=== PATIENT | male | born 1995 | race Caucasian/White ===

== ENCOUNTER 2017-12-04 16:48 | Inpatient (IN) | payer OTHER ==
[2017-12-04 17:52] LABS: #Basophils 0.1 thou/uL (0.0-0.2); #Eosinphils 0.1 thou/uL (0.0-0.7); #Lymphocytes 2.1 thou/uL (1.20-3.40); #Monocytes 0.8 thou/uL (0.11-0.59); #Neutrophils 5.1 thou/uL (1.40-6.50); %Basophils 0.7 % (0.0-1.0); %Eosinophils 1.2 % (0.0-10.0); %Lymphocytes 25.4 % (28.0-48.0); %Monocytes 10.3 % (0.0-4.0); %Neutrophils 62.4 % (31.0-61.0); Hemoglobin 14.1 g/dL (14.0-18.0); Mean Corpuscular HGB CONC 34.2 g/dL (32.0-36.0); Mean Corpuscular Hemoglobin 29.5 pg (25.0-35.0); Mean Corpuscular Volume 86.1 fL (78.0-98.0); Mean Platelet Volume 7.4 fL (7.4-10.4); Platelet Count 238 thou/uL (130-400); RBC Distribution Width 12.6 % (11.5-14.5); White Blood Cell (WBC) Count 8.2 thou/uL (4.8-10.8)
--- NOTE | 2017-12-04 18:00 | RAD ---
CHEST ONE VIEW: 12/04/17 HISTORY: Altered mental status. COMPARISON: None. FINDINGS: The lungs are clear. No pneumothorax or effusion. The cardiac silhouette and mediastinal contours are within normal limits. IMPRESSION: No acute intrathoracic abnormality. POS: [facility]
[2017-12-04 18:06] LABS: Acetaminophen Less than 6.0 mcg/mL (10.0-30.0); Alcohol Less than 10 mg/dL (Less than 10); Salicylate Less than 8.0 mg/dL (15.0-30.0)
[2017-12-04 18:08] LABS: ALT (SGPT) 15 U/L (8-55); AST (SGOT) 38 U/L (5-34); Albumin 4.5 g/dL (3.5-5.0); Alkaline Phosphatase 42 U/L (Less than 750); Anion Gap 11 mmol/L (10-20); BUN (Urea Nitrogen) 11 mg/dL (8.9-20.6); Bilirubin, Total 1.5 mg/dL (0.2-1.2); CK (CPK) 1295 U/L (30-200); Calc. Creatinine Clearance 0 mL/min (70-130); Calcium 9.7 mg/dL (7.8-10.44); Carbon Dioxide 25 mmol/L (22-29); Chloride 108 mmol/L (98-107); Estimated GFR-MDRD Greater than 90; Globulin 2.3 g/dL (2.4-3.5); Glucose 72 mg/dL (70-105); Lipase 12 U/L (8-78); Potassium 3.8 mmol/L (3.5-5.1); Protein, Total 6.8 g/dL (6.0-8.3); Sodium 140 mmol/L (136-145)
--- NOTE | 2017-12-04 18:29 | PDOC.FPRHP ---
- History of Present Illness Chief Complaint: multidrug intoxication History of Present Illness: Pt presents from outside ER for multidrug overdose. Was combative on presentation to outside ER and sedated with ativan and haldol. Reported xanax, canabis, and unknown pill use. On evaluation by FM team pt unable to provide any hx due to mental status. Pt resting in bed with minimal response to questions. GCS 10. ED Course: 2L NS, CT brain negative, s/p 20 mg Haldol, 16 mg Lorazepam, and 150 mg benadryl at outside ER - Allergies/Adverse Reactions Allergies Allergy/AdvReac Type Severity Reaction Status Date / Time No Known Drug Allergies Allergy Verified 12/04/17 20:07 - Home Medications Medication Instructions Recorded Confirmed Type No Known 12/04/17 12/04/17 History - History PMHx: unable to obtain PSHx: unable to obtain FHx:unable to obtain Social:unable to obtain other than that of HPI - Review of Systems ROS unobtainable: due to mental status - Vital signs BP: [121/79] HR: [50] RR: [16] Tmax: [97.5] Pox: [100]% on [ra] Wt: [77] - Physical Exam Constitutional: other (Pt resting in bed) HEENT: normocephalic and atraumatic, EOMI, normal nasal mucosa, MMM Heart: normal S1/S2, no murmurs/rubs/gallops, other (regular rhythm, bradycardic in 50's) Lungs: CTAB, no respiratory distress, good air movement Abdomen: soft, bowel sounds present Musculoskeletal: normal structure, normal tone Neurological: other (GCS: 10, pupils reactive to light 3-2mm) Skin: no rash/lesions, good turgor Heme/Lymphatic: no purpura, no petechia FMR H&P: Results - Labs Result Diagrams: 12/05/17 03:25 12/05/17 03:25 Lab results: WBC 8.2 thou/uL (4.8-10.8) 12/04/17 17:40 Hgb 14.1 g/dL (14.0-18.0) 12/04/17 17:40 Hct 41.3 % (42.0-52.0) L 12/04/17 17:40 MCV 86.1 fL (78.0-98.0) 12/04/17 17:40 Plt Count 238 thou/uL (130-400) 12/04/17 17:40 Neutrophils % 62.4 % (31.0-61.0) H 12/04/17 17:40 Sodium 140 mmol/L (136-145) 12/04/17 17:40 Potassium 3.8 mmol/L (3.5-5.1) 12/04/17 17:40 Chloride 108 mmol/L (98-107) H 12/04/17 17:40 Carbon Dioxide 25 mmol/L (22-29) 12/04/17 17:40 BUN 11 mg/dL (8.9-20.6) 12/04/17 17:40 Creatinine 1.03 mg/dL (0.6-1.3) 12/04/17 17:40 Glucose 72 mg/dL (70-105) 12/04/17 17:40 Calcium 9.7 mg/dL (7.8-10.44) 12/04/17 17:40 Total Bilirubin 1.5 mg/dL (0.2-1.2) H 12/04/17 17:40 AST 38 U/L (5-34) H 12/04/17 17:40 ALT 15 U/L (8-55) 12/04/17 17:40 Alkaline Phosphatase 42 U/L (Less than 750) 12/04/17 17:40 Ammonia 50 umol/L (18-72) 12/04/17 17:40 Creatine Kinase 1295 U/L (30-200) H 12/04/17 17:40 Serum Total Protein 6.8 g/dL (6.0-8.3) 12/04/17 17:40 Albumin 4.5 g/dL (3.5-5.0) 12/04/17 17:40 Lipase 12 U/L (8-78) 12/04/17 17:40 FMR H&P: A/P - Problem List (1) Overdose Current Visit: Yes Status: Acute Code(s): T50.901A - POISONING BY UNSP DRUG/ MEDS/BIOL SUBST, ACCIDENTAL, INIT (2) Intoxication by drug Current Visit: Yes Status: Acute Code(s): F19.929 - OTH PSYCHOACTIVE SUBSTANCE USE, UNSP WITH INTOXICATION, UNSP (3) Rhabdomyolysis Current Visit: Yes Status: Acute Code(s): M62.82 - RHABDOMYOLYSIS - Plan Acute drug intoxication A- Multi-drug abuse/intoxication. Pt airway is patent at this moment but substances ingested are unknown. Unknown if use was recreational or suicide attempt. Pt was combative but not at moment. P- admit patient to IMCU for further monitoring of vitals/airway -ED nurse Amie to call poison control, f/u on recommendations. -strict I/Os. -consider MHMR consult if it was suicide attempt. -prns for agitation. -soft restraints -f/u with pt as to which drugs were ingested and for what reasons as mental status improves -UDS Rhabdomyolysis A- Pt s/p 3L NS prior to admission. No evidence of organ damage. CK 1295. P- repeat CK in AM. - LR 200ml/hr -UA for further eval Transaminitis/Hyperbilirubinemia A- likely related to rhabdo P- continue to monitor DVT prophylaxis: SCDs FMR H&P: Upper Level - Pertinent history Rosalia Rajan is a 22 year old male with a history of depression patient transferred from [facility] due to acute drug intoxication. Patient is somnolent and does not respond appropriately, so all information regarding history was obtained from ED records. Reportedly, patient ingested a "xanax bar " 7 hours prior to arrival to outside ED, and began smoking marijuana. Pt is possibly homeless. Has no prior history of SI/HI. It is unknown whether this was a suicide attempt. Prior to transfer he was given 20 mg Haldol, 16 mg Lorazepam, and 150 mg benadryl for combativeness and agitation. He also received 2L NS. CT of the brain was negative. - Pertinent findings Vitals BP: 121/79 P: 50 RR: 16 T: 97.5 SpO2: 100 on Room Air General: Pt is somnolent, but arousable. GCS of 11 currently ([id number]), able to maintain secretions and protect airway Heart: regular rate and rhythm, no murmurs, rubs, or gallops. Lungs: clear to auscultation bilaterally. Abdomen: soft, non-tender, non-distended. Labs: CK: 1295 AST: 38 ALT: 15 Bili: 1.5 - Plan Date/Time: 12/04/17 1829 I, Shanna Raza, have evaluated this patient and agree with findings/plan as outlined by international travel consultant resident. Pertinent changes/additions are listed here. Acute drug intoxication - will admit patient to IMCU for further monitoring. Pt was administered multiple sedatives, and he will need close monitoring in case of decompensation - Continue supportive care. Routine vitals. - ED nurse will call poison control, and we will continue with their recommendations. - strict I/Os. - consider MHMR consult in AM, especially if it becomes clear that this was a suicide attempt. - prns for agitation. Rhabdomyolysis - Pt received a total of 3L NS prior to admission. We will continue aggressive IV fluid hydration. - repeat CK in AM. - No evidence of complications, such as MELISA or compartment syndrome, but will continue to monitor. Transaminitis/Hyperbilirubinemia - likely related to rhabdo. DVT prophylaxis: SCDs Attending Addendum - Attending Addendum Date/Time: 12/05/17 5505 I personally evaluated the patient and discussed the management with Dr. Curran /Luz Marina. I agree with the History, Examination, Assessment and Plan documented above with any addition or exceptions noted below. Please see dictated H&P from me on 12/04/17 for further details.
[2017-12-04 20:10] VITALS: BMI 25.4
[2017-12-04] MEDS: Lactated Ringer's 1,000 ML IV SCH (20:32)
--- NOTE | 2017-12-04 21:28 | PDOC.EVN ---
Event Note - Event Note Event Note: Poison Control called: Case #: [id number] Recommendations for supportive care and monitoring of airway. It is likely that if pt needed intubation it would have happened already and that pt can be expected to improve in the next 14 hours. Recommend f/u on home meds, in particular psych meds for potential meds that could affect QT interval. Recommend drug screen. Will continue with current management plan per poison control recommendations.
[2017-12-04] MEDS ORDERED: Haloperidol Lactate 5 MG/ML VIAL SLOW IVP PRN (22:34)
[2017-12-05] MEDS: Lactated Ringer's 1,000 ML IV SCH ×4 (01:07→20:09)
--- NOTE | 2017-12-05 02:40 | HP ---
DATE OF ADMISSION: 12/04/2017 TIME OF ADMISSION: 18:45. For full history and physical details, please see Dr. Keenan Curran's electronic history and physical. Portions of the history and physical have been repeated by myself and I am in agreement with the assessment and plan as documented. HISTORY OF PRESENT ILLNESS: In brief, this patient is a 22-year-old male with unknown past medical history who presents from an outside emergency room due to suspected drug overdose. Majority of the history obtained from ER and EMS records. Per the records, patient has a recent history of ingesting marijuana, Xanax, and other unknown substances. He somehow ended up in the emergency room and I believe [facility] for suspected drug overdose and was transferred here. Rest of the history is unable to be obtained due to patient's altered mentation and lack of family members in the room. Upon arrival in the emergency room here, patient was known to be very somnolent and minimally responsive. Per report, he did receive Haldol as well as Ativan at some point in time before our encounter. I do not believe that this was given at our institution. PHYSICAL EXAMINATION: VITAL SIGNS: Stable at the time of my encounter with patient, his blood pressure was 120s/70s. Heart rate ranged from 40s to 70s, but was sinus rhythm throughout the time of my encounter, respirations 18, pulse ox 100% on room air. GENERAL: Patient is somnolent, no apparent distress. He is a nondisheveled in appearance. EYES: Pupils were constricted, but reactive to light. Extraocular movements intact. HEENT: No trauma noted. No visible abnormalities noted. Oropharynx clear. NECK: Supple without lymphadenopathy. HEART: Regular rate and rhythm without murmurs, rubs, or gallops. LUNGS: Clear bilaterally to auscultation. ABDOMEN: Soft, nontender to palpation. Bowel sounds present x4 quadrants. EXTREMITIES: There is no clubbing, cyanosis, or edema. NEUROLOGIC: Minimal due to patient with altered mentation. GCS was 10, M4, V4 , E2. He was protecting his airway well. He would occasionally respond appropriately to questioning, but that was after waking to brisk stimulation. LABORATORY STUDIES: 1. Here revealed an overall normal CBC. Comprehensive metabolic panel was overtly normal, especially renal function with creatinine 1.03 and GFR greater than 90. 2. Total bilirubin 1.5, AST 38, ALT 15. CK was 1295. 3. TSH 2.65. 4. Serum drug screen was negative for salicylate, acetaminophen, or alcohol. 5. Chest x-ray showed no acute process. ASSESSMENT AND PLAN: This is a 22-year-old male presenting with altered mentation secondary to suspected drug intoxication. 1. Acute toxic encephalopathy secondary to polysubstance abuse. Due to patient 's altered mentation and current GCS of 10. Patient will be admitted to the intermediate care unit for close monitoring. He apparently has a history of aggression and which is why he was given Haldol and Ativan by the outside emergency room. We will continue to monitor him and placed him in half strength. Haldol will be ordered and given as needed for agitation or aggression. Anticipate that as the substances clear that he will continue to awaken. We will contact Poison Control to see if there is anything specially needs to be done. Patient will be monitored on telemetry due to his current mild bradycardia. Once we are able to obtain more history from the patient, it may be necessary to consult [facility] it appears this was related to an intentional overdose. 2. Rhabdomyolysis. Patient with mildly elevated CK at greater with 1000. This is likely due to polysubstance abuse. Patient will be placed on high rate of lactated Ringer's fluids. Strict I's and O's, monitor urine output. We will obtain a urinalysis to ensure there is no currently renal cast or evidence of myoglobinuria. 3. Symptomatic medication will be provided as needed. Recheck labs in the morning. MTDD
[2017-12-05 03:04] LABS: Bilirubin Negative (Negative); Blood, Urine Negative (Negative); Clarity CLEAR (Clear); Glucose, Urine (Dipstick) Negative (Negative); Leukocyte Negative (Negative); Nitrite Negative (Negative); Protein, Urine (Dipstick) Negative (Neg-Trace); Specific Gravity, Urine 1.008 (1.002-1.036); pH, Urine 6.5 (5.0-9.0)
[2017-12-05 03:08] LABS: Bacteria/HPF None Seen HPF (None Seen); Hyaline Casts/LPF 0-3 HYALINE CAST LPF (0-3 Hyaline); RBC/HPF 0-3 HPF (0-3); Squamous Epithelial None Seen HPF (0-3); WBC/HPF None Seen HPF (0-3)
[2017-12-05 03:34] LABS: Amphetamine Not Detected (NotDetected); Barbiturates Screen Not Detected (NotDetected); Benzodiazepine Screen Detected (NotDetected); Cocaine Metabolite Screen Not Detected (NotDetected); Medtox Control Line Valid? VALID (VALID); Medtox Reader # READER 4; Methadone Not Detected (NotDetected); Methamphetamine Not Detected (NotDetected); Opiate Screen Not Detected (NotDetected); Oxycodone Screen Not Detected (NotDetected); Phencyclidine (PCP) Not Detected (NotDetected); THC/Cannabinoid Screen Detected (NotDetected); Tricyclic Screen Not Detected (NotDetected)
[2017-12-05 04:06] LABS: #Eosinphils 0.1 thou/uL (0.0-0.7); #Lymphocytes 1.4 thou/uL (1.20-3.40); #Monocytes 0.8 thou/uL (0.11-0.59); #Neutrophils 6.3 thou/uL (1.40-6.50); %Basophils 0.3 % (0.0-1.0); %Eosinophils 1.4 % (0.0-10.0); %Lymphocytes 16.2 % (28.0-48.0); %Monocytes 9.2 % (0.0-4.0); Hemoglobin 12.6 g/dL (14.0-18.0); Mean Corpuscular HGB CONC 33.9 g/dL (32.0-36.0); Mean Corpuscular Hemoglobin 29.6 pg (25.0-35.0); Mean Corpuscular Volume 87.2 fL (78.0-98.0); Mean Platelet Volume 7.4 fL (7.4-10.4); Platelet Count 197 thou/uL (130-400); RBC Distribution Width 12.6 % (11.5-14.5); Red Blood Cell (RBC) Count 4.27 mill/uL (4.00-5.20); White Blood Cell (WBC) Count 8.6 thou/uL (4.8-10.8)
[2017-12-05 04:17] LABS: Anion Gap 12 mmol/L (10-20); BUN (Urea Nitrogen) 12 mg/dL (8.9-20.6); CK (CPK) 1287 U/L (30-200); Calc. Creatinine Clearance 108 mL/min (70-130); Calcium 9.4 mg/dL (7.8-10.44); Carbon Dioxide 24 mmol/L (22-29); Chloride 109 mmol/L (98-107); Estimated GFR-MDRD 85; Glucose 75 mg/dL (70-105); Potassium 3.8 mmol/L (3.5-5.1); Sodium 141 mmol/L (136-145)
--- NOTE | 2017-12-05 04:59 | PDOC.FM ---
- Subjective Subjective: Patient very sleepy this morning on exam. - Objective Vital Signs & Weight: Vital Signs (12 hours) Temp Pulse Resp BP Pulse Ox 12/05/17 04:00 98.0 F 58 L 18 111/44 L 97 12/05/17 00:00 98.3 F 50 L 16 104/50 L 98 12/04/17 20:00 99 12/04/17 19:47 97.9 F 47 L 16 115/55 L 99 Weight Weight 71.441 kg I&O: 12/03/17 12/04/17 12/05/17 06:59 06:59 06:59 Output Total 1000 Balance -1000 Result Diagrams: 12/05/17 03:25 12/05/17 03:25 <Effie Pelayo - Last Filed: 12/05/17 07:56> - Objective Vital Signs & Weight: Vital Signs (12 hours) Temp Pulse Resp BP Pulse Ox 12/05/17 07:14 98.0 F 50 L 18 92/36 L 98 12/05/17 04:00 98.0 F 58 L 18 111/44 L 97 12/05/17 00:00 98.3 F 50 L 16 104/50 L 98 Weight Weight 72.32 kg I&O: 12/04/17 12/05/17 12/06/17 06:59 06:59 06:59 Intake Total 2000 Output Total 1000 Balance 1000 Result Diagrams: 12/05/17 03:25 12/05/17 03:25 <Thomas Can - Last Filed: 12/05/17 10:31> Phys Exam - Physical Examination Constitutional: NAD HEENT: PERRLA, sclera anicteric Respiratory: no wheezing, no rales, no rhonchi, clear to auscultation bilateral Cardiovascular: RRR, no significant murmur Gastrointestinal: soft, non-tender, no distention, positive bowel sounds Musculoskeletal: no edema, pulses present Deviation from normal: sleepy, unable to arouse to answer questions appropriately. Skin: normal turgor, cap refill <2 seconds <Effie Pelayo - Last Filed: 12/05/17 07:56> Dx/Plan (1) Elevated LFTs Code(s): R94.5 - ABNORMAL RESULTS OF LIVER FUNCTION STUDIES Status: Acute (2) Intoxication by drug Code(s): F19.929 - OT PSYCHOACTIVE SUBSTANCE USE, UNSP WITH INTOXICATION, UNSP Status: Acute (3) Overdose Code(s): T50.901A - POISONING BY UNSP DRUG/MEDS/BIOL SUBST, ACCIDENTAL, INIT Status: Acute (4) Rhabdomyolysis Code(s): M62.82 - RHABDOMYOLYSIS Status: Acute - Plan Plan: 22 yo M admitted for AMS 2/2 acute drug intoxication AMS 2/2 Acute drug intoxication - will admit patient to [facility] for further monitoring. Pt was administered multiple sedatives, and he will need close monitoring in case of decompensation - Likely xanax, weed, and possibly mdmh - Continue supportive care. Routine vitals. - strict I/Os. - consider MHMR consult in AM, especially if it becomes clear that this was a suicide attempt. - prns for agitation. Rhabdomyolysis - Pt received a total of 3L NS prior to admission. - current LR @ 200 ml/hr - repeat CK about the same: 1295 to 1287. Repeat at noon - No evidence of complications, such as MELISA or compartment syndrome, but will continue to monitor. Transaminitis/Hyperbilirubinemia - likely related to rhabdo. <Effie Pelayo - Last Filed: 12/05/17 07:56> (1) Overdose Code(s): T50.901A - POISONING BY UNSP DRUG/MEDS/BIOL SUBST, ACCIDENTAL, INIT Status: Acute (2) Intoxication by drug Code(s): F19.929 - [facility] PSYCHOACTIVE SUBSTANCE USE, UNSP WITH INTOXICATION, UNSP Status: Acute (3) Rhabdomyolysis Code(s): M62.82 - RHABDOMYOLYSIS Status: Acute <Thomas Can - Last Filed: 12/05/17 10:31> Attending Addendum - Attending Addendum Date/Time: 12/05/17 1030 I personally evaluated the patient and discussed the management with Dr. Pelayo. I agree with the History, Examination, Assessment and Plan documented above with any addition or exceptions noted below. Patient with current GCS 14 but he has apparently been up and ambulated to the bathroom without difficulty. Poison control contacted and recommended monitoring. He is stable for transfer out of [facility]. Will transfer to telemetry for QT monitoring. CK continues to be elevated, continue IVF and PO hydration. Once CK less than 1000, can d/c fluids and contact [facility]. <Thomas Can R - Last Filed: 12/05/17 10:31>
--- NOTE | 2017-12-05 15:25 | PDOC.EVN ---
Event Note - Event Note Event Note: Medications: per parents, none PMH:Per parents, patient has history of "front rt and left parts of brain not touching" since he was a child; hx of acting out and hurting family dog as a child (used to take abilify, but refuses now), anxiety and depression not on medications Fam hx: unknown, patient adopted at 4 yrs of age Social hx: per parents report: He has lived on the streets, not much contact with parents, living on a friends couch now and working for a cleaning service.
--- NOTE | 2017-12-05 17:17 | PDOC.EVN ---
Event Note - Event Note Event Note: Received page from nursing staff stating she had spent 1 hour discussing history with the patient. He endorsed to the nurse that he has been seeing and hearing things that others cannot see. He also states that he was not trying to kill himself but knew that the amount of drugs he took could harm him. I have ordered a sitter to be placed in his room and at this time the patient should not leave AMA or be discharged from the hospital without evaluation by [facility]. Discussed with Dr. Can.
[2017-12-06] MEDS: Lactated Ringer's 1,000 ML IV SCH ×5 (00:13→22:10)
--- NOTE | 2017-12-06 05:28 | PDOC.FM ---
- Subjective Subjective: Pt asking when he can leave this morning, stated he had a small headache overnight and received tylenol. Pt states he does not remember much of the last two days. He reports he took 3 pills "petey," 1.5 xanax, and smoked marijuana with his friends all evening. Denies hearing things or seeing things. Reports NKDA, not on any medications (besides the drugs). States that he knew the amount of drugs he could take could hurt himself. States it was his first time having "petey." Reports history of anxiety and depression, says he has never taken medication for it. - Objective Vital Signs & Weight: Vital Signs (12 hours) Temp Pulse Resp BP Pulse Ox 12/06/17 04:58 98.2 F 73 12 104/57 L 97 12/06/17 00:00 98.3 F 66 20 112/56 L 96 12/05/17 19:19 98.1 F 81 18 112/58 L 100 Weight Weight 72.32 kg I&O: 12/04/17 12/05/17 12/06/17 06:59 06:59 06:59 Intake Total 2000 Output Total 1000 Balance 1000 Result Diagrams: 12/05/17 03:25 12/06/17 05:11 <Effie Pelayo - Last Filed: 12/06/17 07:51> - Objective Vital Signs & Weight: Vital Signs (12 hours) Temp Pulse Resp BP Pulse Ox 12/06/17 07:06 98 F 58 L 16 124/77 99 12/06/17 04:58 98.2 F 73 12 104/57 L 97 12/06/17 00:00 98.3 F 66 20 112/56 L 96 Weight Weight 72.32 kg I&O: 12/05/17 12/06/17 12/07/17 06:59 06:59 06:59 Intake Total 2000 Output Total 1000 Balance 1000 Result Diagrams: 12/05/17 03:25 12/06/17 05:11 <Thomas Can - Last Filed: 12/06/17 10:21> Phys Exam - Physical Examination Constitutional: NAD HEENT: PERRLA, moist MMs Neck: no nodes, supple Respiratory: no wheezing, no rales, no rhonchi, clear to auscultation bilateral Cardiovascular: RRR, no significant murmur Gastrointestinal: soft, non-tender, no distention Musculoskeletal: no edema, pulses present Neurological: normal sensation, moves all 4 limbs Psychiatric: normal affect Deviation from normal: AOx2, not oriented to time. Skin: no rash, normal turgor, cap refill <2 seconds <KiritEffie baumann - Last Filed: 12/06/17 07:51> Dx/Plan (1) Elevated LFTs Code(s): R94.5 - ABNORMAL RESULTS OF LIVER FUNCTION STUDIES Status: Acute (2) Intoxication by drug Code(s): F19.929 - OTH PSYCHOACTIVE SUBSTANCE USE, UNSP WITH INTOXICATION, UNSP Status: Acute (3) Overdose Code(s): T50.901A - POISONING BY UNSP DRUG/MEDS/BIOL SUBST, ACCIDENTAL, INIT Status: Acute (4) Rhabdomyolysis Code(s): M62.82 - RHABDOMYOLYSIS Status: Acute - Plan Plan: 22 yo M admitted for AMS 2/2 acute drug intoxication AMS 2/2 Acute drug intoxication - will admit patient to IMCU for further monitoring. Pt was administered multiple sedatives, and he will need close monitoring in case of decompensation - Likely xanax, weed, and possibly mdmh use - Continue supportive care. Routine vitals. - strict I/Os. - prns for agitation. Rhabdomyolysis - continue LR @ 200 ml/hr -CK: 1295, 1287, 1125, 1127 - BUN/Cr WNL -repeat AM CPK and CBC - No evidence of complications, such as MELISA or compartment syndrome, but will continue to monitor. Transaminitis/Hyperbilirubinemia - likely related to rhabdo. Anxiety and Depression Hx - pt stated to nursing yesterday that he was seeing/hearing things that were not there. Pt stated that he wasn't suicidal, but he knew the amount of drugs he took could harm himself. Pt has a sitter, will not let patient leave without consult visit by [facility]. -[facility] consult once CK <1000. <Effie Pelayo - Last Filed: 12/06/17 07:51> (1) Overdose Code(s): T50.901A - POISONING BY UNSP DRUG/MEDS/BIOL SUBST, ACCIDENTAL, INIT Status: Acute (2) Intoxication by drug Code(s): F19.929 - OTH PSYCHOACTIVE SUBSTANCE USE, UNSP WITH INTOXICATION, UNSP Status: Acute (3) Rhabdomyolysis Code(s): M62.82 - RHABDOMYOLYSIS Status: Acute <Thomas Can R - Last Filed: 12/06/17 10:21> Attending Addendum - Attending Addendum Date/Time: 12/06/17 1020 I personally evaluated the patient and discussed the management with Dr. Pelayo. I agree with the History, Examination, Assessment and Plan documented above with any addition or exceptions noted below. Patient here with resolved encephalopathy from multi substance abuse. He cannot tell us if this was intentional or not, but he does have history of psychiatric illness and reports hearing voices and having visual hallucinations. Continue sitter. Will need MHMR consult once medically clear. Will recheck CK level this morning. He is nearing stability for discharge as CK of currrent level has never been documented to result in renal injury. Can D/C fluids once CK a little lower. <Thomas Can R - Last Filed: 12/06/17 10:21>
[2017-12-06] MEDS: Acetaminophen 325 MG TAB PO PRN ×2 (05:39→18:24)
[2017-12-06 06:27] LABS: Anion Gap 14 mmol/L (10-20); BUN (Urea Nitrogen) 9 mg/dL (8.9-20.6); CK (CPK) 1127 U/L (30-200); Calc. Creatinine Clearance 122 mL/min (70-130); Calcium 9.2 mg/dL (7.8-10.44); Carbon Dioxide 25 mmol/L (22-29); Chloride 106 mmol/L (98-107); Estimated GFR-MDRD Greater than 90; Glucose 78 mg/dL (70-105); Potassium 3.6 mmol/L (3.5-5.1); Sodium 141 mmol/L (136-145)
[2017-12-06] MEDS: Benzonatate 100 MG CAP PO PRN (18:23)
[2017-12-06] MEDS: Guaifenesin DM 100-10/5 ML UDCUP PO PRN (20:48)
[2017-12-06] MEDS: Melatonin 3 MG TAB PO PRN (20:48)
[2017-12-07] MEDS: Lactated Ringer's 1,000 ML IV SCH ×5 (04:03→20:12)
--- NOTE | 2017-12-07 05:51 | PDOC.FM ---
- Subjective Subjective: Started having cough last night, complains of sore throat this morning. Headache from yesterday resolved. - Objective Vital Signs & Weight: Vital Signs (12 hours) Temp Pulse Resp BP Pulse Ox 12/07/17 04:03 97.6 F 56 L 16 112/62 96 12/07/17 00:06 97.8 F 56 L 16 114/74 98 12/06/17 19:20 98.3 F 65 16 124/82 98 12/06/17 19:10 98 Weight Weight 72.32 kg I&O: 12/05/17 12/06/17 12/07/17 06:59 06:59 06:59 Intake Total 1999 2154 Output Total 1000 920 Balance 1000 1234 Result Diagrams: 12/05/17 03:25 12/07/17 04:21 Phys Exam - Physical Examination Constitutional: NAD HEENT: PERRLA, moist MMs, 2+ tonsils Neck: supple +LAD Respiratory: no wheezing, clear to auscultation bilateral +cough Cardiovascular: RRR, no significant murmur Gastrointestinal: soft, non-tender, no distention Musculoskeletal: no edema, pulses present Neurological: non-focal, moves all 4 limbs Psychiatric: normal affect, A&O x 3 Skin: normal turgor, cap refill <2 seconds Dx/Plan (1) Elevated LFTs Code(s): R94.5 - ABNORMAL RESULTS OF LIVER FUNCTION STUDIES Status: Acute (2) Intoxication by drug Code(s): F19.929 - OTH PSYCHOACTIVE SUBSTANCE USE, UNSP WITH INTOXICATION, UNSP Status: Acute (3) Overdose Code(s): T50.901A - POISONING BY UNSP DRUG/MEDS/BIOL SUBST, ACCIDENTAL, INIT Status: Acute (4) Rhabdomyolysis Code(s): M62.82 - RHABDOMYOLYSIS Status: Acute - Plan Plan: 22 yo M admitted for AMS 2/2 acute drug intoxication AMS 2/2 Acute drug intoxication, resolved - will admit patient to [facility] for further monitoring. Pt was administered multiple sedatives, and he will need close monitoring in case of decompensation - Likely xanax, weed, and mdmh use - Continue supportive care. Routine vitals. - strict I/Os. - prns for agitation. URI -Tessalon perles, robitussin for cough Rhabdomyolysis - increase LR @ 250 ml/hr -CK: 1295, 1287, 1125, 1127, 1693, 1376 - BUN/Cr WNL -AM CPK and CBC - Repeat CK @ 1400 today - No evidence of complications, such as MELISA or compartment syndrome, but will continue to monitor. Transaminitis/Hyperbilirubinemia - likely related to rhabdo. Anxiety and Depression Hx -Patient stated he knew the amount of drugs he took could hurt himself -MR consult once CK <1000. Insomnia -melatonin PRN
[2017-12-07 05:53] LABS: Anion Gap 8 mmol/L (10-20); BUN (Urea Nitrogen) 11 mg/dL (8.9-20.6); CK (CPK) 1376 U/L (30-200); Calc. Creatinine Clearance 113 mL/min (70-130); Calcium 9.5 mg/dL (7.8-10.44); Carbon Dioxide 29 mmol/L (22-29); Chloride 105 mmol/L (98-107); Estimated GFR-MDRD 88; Glucose 84 mg/dL (70-105); Potassium 3.7 mmol/L (3.5-5.1); Sodium 138 mmol/L (136-145)
[2017-12-07] MEDS: Benzonatate 100 MG CAP PO PRN (09:09)
--- NOTE | 2017-12-07 13:04 | PRG ---
DATE OF SERVICE: 12/07/2017 SUBJECTIVE: Mr. Rajan was admitted with multiple drug overdose and is currently much improved than stable. He had been having episodes of hallucination, but is not clear whether this was drug related or whether he has primary psychosis and schizophrenia. We are waiting for his CK levels to drop fur ther so that [facility] can evaluate Mr. Rajan. In the event from a medical and clinical standpoint, he i s stable and ready for psychiatric evaluation.
[2017-12-07] MEDS ORDERED: Haloperidol 5 MG TAB PO SCH (17:30)
--- NOTE | 2017-12-07 18:09 | PDOC.EVN ---
Event Note - Event Note Event Note: Residents paged by nursing staff stating patient was threatening to leave AMA. Residents informed nursing staff that patient could not leave AMA due to concern for SI/HI and possible acute psychosis. I went to the medical floor and found the patient pacing in the hallways. He stated that he was tired of being in the hospital and that he wanted leave AMA. I informed him that given our concern for self harm and acute psychosis, we felt he could harm himself or others and therefore could not leave AMA. He then proceeded to tear out his IV and walked to the elevator. I asked nursing staff to call security for assistance. By the time security arrived, the patient had walked back to his room and was talking with a friend. The patient asked me to speak to his friend on the phone. The friend stated that the patient had been living with him for a while and that he was the closest thing to family the patient had. He then began to ask questions regarding the patient's medical treatment and course. I informed him that since he was not on the notify list given by the patient, I could not release any information. The friend agreed to talk with the patient and was able to convince him to stay in the hospital. The patient was unhappy about staying but agreeable. I have ordered a PRN dose of haldol for the patient if he becomes combative again. Will recheck CPK in the morning and contact [facility] if it is trending down. Discussed case with Dr. Riley and the warehouse logistics coordinator.
[2017-12-07] MEDS ORDERED: Ziprasidone 20 MG VIAL IM PRN (19:32)
[2017-12-07] MEDS ORDERED: Sterile Water 10 ML VIAL FS PRN (19:58)
[2017-12-07] MEDS: Guaifenesin DM 100-10/5 ML UDCUP PO PRN (20:12)
[2017-12-07] MEDS: Melatonin 3 MG TAB PO PRN (20:12)
[2017-12-07] MEDS: Acetaminophen 325 MG TAB PO PRN (20:14)
[2017-12-08] MEDS: Lactated Ringer's 1,000 ML IV SCH ×3 (00:14→08:22)
[2017-12-08] MEDS: Guaifenesin DM 100-10/5 ML UDCUP PO PRN (04:16)
[2017-12-08 05:38] LABS: Anion Gap 14 mmol/L (10-20); BUN (Urea Nitrogen) 6 mg/dL (8.9-20.6); CK (CPK) 865 U/L (30-200); Calc. Creatinine Clearance 132 mL/min (70-130); Calcium 9.7 mg/dL (7.8-10.44); Carbon Dioxide 24 mmol/L (22-29); Chloride 106 mmol/L (98-107); Estimated GFR-MDRD Greater than 90; Glucose 77 mg/dL (70-105); Potassium 3.6 mmol/L (3.5-5.1); Sodium 140 mmol/L (136-145)
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
--- NOTE | 2017-12-08 12:20 | PRG ---
DATE OF SERVICE: 12/08/2017 Mr. Rajan continues to look and feel better. His CPK has dropped to 865. We have asked [facility] to see him regarding possible further inpatient psychiatric care. In any event, this morning he is awake, alert, in no distress. We also discussed his situation with him in the presence of his father.
[2017-12-08 19:40] VITALS: BP 129/78; TEMP 98.4
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
== END 2017-12-08 22:29 | disposition short-term general hospital (02) | DRG 917 ==
LOC: ERS 16:48 → OBSVTOIN 17:43 → IMCU/EMU 17:43 → 2NO 12-05 16:15 → T4-B 12-06 13:31
PROVIDERS: ADMIT Student in an Organized Health Care Education/Training Program; ATTEND Student in an Organized Health Care Education/Training Program
DX: T50.901A Poisoning by unspecified drugs, medicaments and biological substances, accidental (unintentional), initial encounter (principal); G92 Toxic encephalopathy; M62.82 Rhabdomyolysis; Y92.9 Unspecified place or not applicable; F19.929 Other psychoactive substance use, unspecified with intoxication, unspecified; R74.0 Nonspecific elevation of levels of transaminase and lactic acid dehydrogenase [LDH]
CPT/HCPCS: 36415; 71045; 80048; 80053; 80306; 80307; 81001; 82140; 82550; 83690; 84443; 85025; 96360; A4216; J3486

== ENCOUNTER 2018-11-21 20:11 | Emergency (ER) | payer OTHER | END 2018-11-21 20:42 | disposition home or self-care (01) | LOC: SCSER 20:11 | DX: S00.83XA Contusion of other part of head, initial encounter (principal); S00.12XA Contusion of left eyelid and periocular area, initial encounter; S00.11XA Contusion of right eyelid and periocular area, initial encounter; W20.8XXA Other cause of strike by thrown, projected or falling object, initial encounter | CPT/HCPCS: 99283 ==